=== PATIENT | male | born 1960 | race Asian ===

== ENCOUNTER 2016-09-25 19:31 | Emergency (ER) | payer MEDICAID ==
[2016-09-25 19:37] VITALS: BP 157/98
--- NOTE | 2016-09-25 21:08 | ED Physician Documentation ---
History of Present Illness - Stated complaint Stated Complaint: DIZZY,HANDS BURN,EYES BURN - Chief complaint Chief Complaint: General - History obtained from History obtained from: Patient - History of Present Illness Timing: How many days ago (3) - Additonal information Additional information: Patient is 56 year old male presenting to the emergency department for dizziness , hot flashes and sweats. patient was started on cipro, for a uti on thursday. Patient states that after starting the medications he had high fevers, sweats, and hot skins. He talked to his doctor office who thought that he might be having an allergic reaction. Patient denied any itching, shortness of breath, or sustained rash. Upon initial evaluation in the emergency department patient was well appearing and in no acute distress. Review of Systems Constitutional: reports: Fever, Chills. denies: Myalgias Eyes: denies: Loss of vision, Photophobia Ears: denies: Ear pain, Drainage/discharge Nose: denies: Rhinorrhea / runny nose, Congestion Throat: denies: Sore throat Cardiac: denies: Chest pain / pressure, Palpitations Respiratory: denies: Cough, Wheezing GI: reports: Nausea. denies: Abdominal Pain, Vomiting : denies: Dysuria, Frequency, Hesitancy Skin: denies: Rash, Lesions Musculoskeletal: denies: Neck pain, Back pain, Extremity pain Neurologic: reports: Near syncope. denies: Generalized weakness, Focal weakness , Numbness, Difficulty speaking Psychiatric: denies: Depressed Endocrine: denies: Polyuria Immunocompromised: denies: Immunocompromised PD PAST MEDICAL HISTORY - Past Medical History Past Medical History: Yes Cardiovascular: Hypertension Respiratory: None Neuro: None Endocrine/Autoimmune: None GI: None : None HEENT: None Psych: None Musculoskeletal: None Derm: None - Past Surgical History Past Surgical History: Yes - Present Medications Home Medications: Ambulatory Orders Medication Instructions Recorded Confirmed Cephalexin [Keflex] 500 mg PO QID 7 Days 09/25/14 Ciprofloxacin HCl [Cipro] 500 mg PO BID 09/25/16 09/25/16 Emtricitabine/Tenofovir [Truvada 1 each PO DAILY 09/25/16 09/25/16 200 mg-300 mg Tablet] Hydrochlorothiazide 12.5 mg PO DAILY 09/25/16 09/25/16 amLODIPine [Norvasc] 10 mg PO DAILY 09/25/16 09/25/16 - Allergies Allergies/Adverse Reactions: Allergies Allergy/AdvReac Type Severity Reaction Status Date / Time No Known Drug Allergies Allergy Verified 09/24/14 19:48 - Social History Does the pt smoke?: No Smoking Status: Never smoker Does the pt drink ETOH?: Yes Does the pt have substance abuse?: No - Immunizations Immunizations are current?: No Immunizations: TDAP >10years/unknown PD ED PE NORMAL - Vitals Vital signs reviewed: Yes - General General: Alert and oriented X 3, No acute distress, Well developed/nourished - HEENT HEENT: Atraumatic, PERRL, Moist mucous membranes, Pharynx benign, Other (no soft palate swelling) - Neck Neck: Supple, no meningeal sign - Cardiac Cardiac: RRR, No murmur - Respiratory Respiratory: No respiratory distress, Clear bilaterally - Abdomen Abdomen: Soft, Non tender, Non distended - Derm Derm: Normal color, Warm and dry, No rash - Extremities Extremities: No deformity, No tenderness to palpate, No edema - Neuro Neuro: Alert and oriented X 3, final rail cutter 2-12 intact, No motor deficit, No sensory deficit, Normal speech - Psych Psych: Normal mood, Normal affect Results - Vitals Vitals: Vital Signs - 24 hr 09/25/16 19:34 Temperature 37.1 C Heart Rate 87 Respiratory 20 Rate Blood Pressure 157/98 H O2 Saturation 98 Oxygen O2 Source Room air PD MEDICAL DECISION MAKING - ED course Complexity details: reviewed old records, re-evaluated patient, considered differential, d/w patient ED course: Patient was seen and examined at bedside. Vital signs were within normal limits and patient was well appearing. Patient's symptoms were likely secondary to systemic disease, not an allergic reaction. Patient had improved over the last few days. Patient was stable for discharge with outpatient follow up. Departure - Departure Disposition: 01 Home, Self Care Clinical Impression: Urinary tract infection, Adverse drug reaction Condition: Good Instructions: ED Drug React Adverse Other Follow-Up: primary,care provider [Other] - Within 3 Days Comments: Your symptoms over the last three days were more likely secondary to a systemic reaction as opposed to a drug reaction. You seem to be feeling better today. You should continue to stay well hydrated and take your antibiotic with food and a probiotic. You can take leatha as needed for nausea. You should follow up with your pmd this next week and finish your course of antibiotics. You may return to the emergency department at any time for new, worsening or uncontrollable symptoms. Discharge Date/Time: 09/25/16 21:18
== END 2016-09-25 21:18 | disposition home or self-care (01) ==
LOC: ED 19:31
DX: T36.8X5A Adverse effect of other systemic antibiotics, initial encounter (principal); Y92.019 Unspecified place in single-family (private) house as the place of occurrence of the external cause; N39.0 Urinary tract infection, site not specified; I10 Essential (primary) hypertension
CPT/HCPCS: 99283

== ENCOUNTER 2020-04-12 12:50 | Outpatient (CLI) | payer OTHER | END 2020-04-12 23:59 | disposition home or self-care (01) | LOC: COV 12:50 | PROVIDERS: ATTEND Family Medicine | DX: Z20.828 Contact with and (suspected) exposure to other viral communicable diseases (principal) ==